=== PATIENT | female | born 1980 | race Caucasian/White ===

== ENCOUNTER 2023-01-07 17:29 | Observation (INO) ==
[2023-01-07] MEDS ORDERED: ONDANSETRON INJ 2 MG/ML 2 ML VIAL IV STA (17:44)
[2023-01-07] MEDS ORDERED: MoRPHine SULFATE 10 MG/ML CARP/VIAL IV STA (17:44)
[2023-01-07] MEDS ORDERED: PROPOFOL IV EMULSION 10 MG/ML 20 ML VIAL IV ONE (18:11)
--- NOTE | 2023-01-07 18:13 | XRay Report ---
XR ankle RT min 3V routine HISTORY: 42 years-old Female right ankle injury acute right ankle pain status post trauma COMPARISON: None TECHNIQUE: 2 views of the right ankle FINDINGS: Acute trimalleolar ankle fracture. Oblique distal fibular fracture demonstrates mild apex medial angu lation with a few millimeters of posterior and medial displacement. Acute medial malleolar fracture i s noted with associated tibiotalar subluxation. Acute mildly displaced posterior malleolar fracture. Spurring of the calcaneus. Moderate soft tissue swelling. IMPRESSION: Acute mildly displaced trimalleolar fracture with tibiotalar subluxation. ACT 112: Negative or not required by law. The above report was generated using voice recognition software. It may contain grammatical, syntax o r spelling errors. Electronically signed by: Ashok Eckert M.D. 01/07/2023 6:12 PM
--- NOTE | 2023-01-07 18:46 | XRay Report ---
XR ankle RT 2V HISTORY: 42 years-old Female r ankle fx acute right ankle fracture COMPARISON: Radiograph of same day at 5:45 PM TECHNIQUE: 3 views of the right ankle FINDINGS: Acute trimalleolar ankle fracture demonstrates improved alignment status post reduction. There is mil d persistent displacement of the fracture fragments with satisfactory alignment of the tibiotalar jenny nt. Mild osteoarthritis. IMPRESSION: Improved alignment of the acute trimalleolar fracture with satisfactory alignment of the tibiotalar joint. ACT 112: Negative or not required by law. The above report was generated using voice recognition software. It may contain grammatical, syntax o r spelling errors. Electronically signed by: Ashok Eckert M.D. 01/07/2023 6:43 PM
--- NOTE | 2023-01-07 19:11 | Emergency Department Note ---
ED Visit Note Patient was seen and evaluated by myself after discussion with Lorena ANN as she was concerned for tenting of the ankle with a trimalleolar fracture. X-rays were reviewed and did she just to try male with some subluxation per my read. After conversation with the patient at bedside. They were in agreement with sedation. Patient was given 70 mg of propofol in incremental doses by myself at bedside after discussing the risk and benefits. Patient tolerated the procedure well. Please see progress note for splinting and relocation of the ankle. Following the reduction pulses were checked by myself and showed a good DP pulse. Good cap refill. Repeat x-rays did show improved alignment of the tibial talar joint. .
--- NOTE | 2023-01-07 19:12 | Emergency Department Note ---
Pre Sedation Assessment Vital Signs Temp Pulse Pulse Resp BP BP Pulse Ox 01/07/23 18:36 117/91 01/07/23 18:36 90 13 01/07/23 18:30 89 9 L 01/07/23 18:30 121/85 01/07/23 18:27 88 6 L 01/07/23 18:27 119/89 01/07/23 18:20 97 H 12 100 01/07/23 18:20 134/82 01/07/23 18:16 96 H 13 100 01/07/23 18:16 123/84 01/07/23 18:15 93 H 18 100 01/07/23 18:22 92 H 01/07/23 18:35 01/07/23 18:33 01/07/23 18:28 01/07/23 18:23 01/07/23 18:17 91 H 14 123/84 100 01/07/23 17:29 36.6 C 105 H 16 140/93 98 O2 Del Method 01/07/23 18:36 01/07/23 18:36 01/07/23 18:30 01/07/23 18:30 01/07/23 18:27 01/07/23 18:27 01/07/23 18:20 01/07/23 18:20 01/07/23 18:16 01/07/23 18:16 01/07/23 18:15 01/07/23 18:22 01/07/23 18:35 Non-rebreather 01/07/23 18:33 Non-rebreather 01/07/23 18:28 Non-rebreather 01/07/23 18:23 Non-rebreather 01/07/23 18:17 Non-rebreather 01/07/23 17:29 Room Air Pre-Sedation Airway Assessment Smoking Status: Current every day smoker Hx Sleep Apnea: No Short, Thick Neck: No Thyromental Distance: > or= 3.5 Finger Breadths Oral Cavity: + WNL Mallampati Class: I ASA: ASA2 NPO Status Date of Last Intake of Fluids: 01/07/23 Time of Last Intake of Fluids: 13:00 Last Oral Intake of Fluids Comment: beer Date of Last Intake of Solid Food: 01/07/23 Time of Last Intake of Solid Foods: 13:00 Last Intake of Solids Comment: wings Notes The planned sedation has been discussed with the patient. Informed Consent was obtained. I have identified the patient, determined the appropriateness of sedation and have assessed the patient immediately prior to the procedure. All medicine(s) and interventions are by my order. Sedation was performed even though patient had recently eaten around 1 PM a full meal as there was concern for tenting of the skin with ankle dislocation and fracture.
--- NOTE | 2023-01-07 19:14 | Emergency Department Note ---
Post Sedation Assessment Vital Signs Temp Pulse Pulse Resp BP BP Pulse Ox 01/07/23 18:36 117/91 01/07/23 18:36 90 13 01/07/23 18:30 89 9 L 01/07/23 18:30 121/85 01/07/23 18:27 88 6 L 01/07/23 18:27 119/89 01/07/23 18:20 97 H 12 100 01/07/23 18:20 134/82 01/07/23 18:16 96 H 13 100 01/07/23 18:16 123/84 01/07/23 18:15 93 H 18 100 01/07/23 18:22 92 H 01/07/23 18:35 01/07/23 18:33 01/07/23 18:28 01/07/23 18:23 01/07/23 18:17 91 H 14 123/84 100 01/07/23 17:29 36.6 C 105 H 16 140/93 98 O2 Del Method 01/07/23 18:36 01/07/23 18:36 01/07/23 18:30 01/07/23 18:30 01/07/23 18:27 01/07/23 18:27 01/07/23 18:20 01/07/23 18:20 01/07/23 18:16 01/07/23 18:16 01/07/23 18:15 01/07/23 18:22 01/07/23 18:35 Non-rebreather 01/07/23 18:33 Non-rebreather 01/07/23 18:28 Non-rebreather 01/07/23 18:23 Non-rebreather 01/07/23 18:17 Non-rebreather 01/07/23 17:29 Room Air Recovery Score Activity: Moves 4 extremities Respiration: Deep Breath/Cough Circulation: +/-20% PreAnes Value Consciousness: Arouseable (by name) Oxygen Saturation: > 92% On Room Air Post Anesthesia Score: 9 Discharge Sedation Unexpected Event: None Post Sedation Plan On clinical assessment, the patient appears to have tolerated the sedation without complications. Patient is recovering as anticipated. Patient will continue to be monitored by nursing and may be discharged when sedation discharge criteria are met per below protocol. Upon Completions of procedure up to 15 minutes continue every 5 minute vital signs and the P.A.R. score; then discharge to a Phase I or Fast Track to Phase II per the following guidelines: * Discharge Patient to appropriate Phase II area if PAR is 8 or greater or return to pre- procedure baseline. The post - procedure orders will be as directed. * If PAR score is less than 8 or not return to pre-procedure baseline then patient will follow Phase I monitoring till PAR is reached for Phase II. The Phase I may be done in procedure room or may call to secure a Phase I area. * If naloxone or flumazenil are used for reversal, hold in Phase I for continued monitoring from when last reversal dose was given for a minimum of 60 minutes or longer pending the nurse and/or physician discretion of patient condition before discharge to Phase II. Please call the Sedation Physician to re-evaluate and complete post-note for discharge to Phase II area. Do NOT discharge from procedure sedation or Phase 1 until post- sedation evaluation note is complete by procedure /sedation MD Sedation Discharge Instructions to be given to the patient at discharge to home. Sedation Data Sedation Times Sedation Start Date: 01/07/23 Sedation Start Time: 18:24 Sedation End Date: 01/07/23 Procedure Times Procedure Start Time:: 18:23 Procedure End Time: 18:35 Specimens Specimens Obtained: No Supervising Physician Co-Signing Physician Notes EM PROCEDURE NOTE- PROCEDURAL SEDATION Sedation Level: Moderate PRIOR TO THE PROCEDURE THE FOLLOWING INFORMATION WAS VERIFIED: Procedure/Indication: Ankle fracture dislocation Verify Correct Patient: Yes Verify Correct Site: Yes Verify Correct Procedure: Yes Airway Assessment: Normal anatomy ASA Physical Status: 1 Procedure sedation was discussed with the patient. Risks and benefits were e xplained with the possible risks including but not limited to hypotension, allergic reaction, vomiting, pneumonia, loss of respiratory effort, cardiac arrest, and emergence reaction. PROCEDURE NOTE: Preparation for the sedation procedure included: nuclear radiologist, IV access, pulse oxymetry, ETCO2 monitor, oxygen, suction and ambu bag. Sedation was accomplished using propofol 70mg IV. I provided anesthesia care for this patient for 12 minutes. Voice Pathologist/Energy Attorney: Lars Mckeon DO. Complication(s) during the procedure: None Mental status post procedure: Response to verbal stimuli - Appropriate Disposition See nurses record for monitoring/vital signs Alert prior to discharge
--- NOTE | 2023-01-07 19:22 | XRay Report ---
XR ankle RT 2V HISTORY: 42 years-old Female postreduction in splint acute right ankle fracture COMPARISON: Radiographs of same day at 6:35 PM TECHNIQUE: 2 views the right ankle FINDINGS: Acute trimalleolar ankle fracture demonstrates unchanged alignment compared to the status post reduct ion images. There is mild persistent displacement of the fracture fragments with satisfactory alignme nt of the tibiotalar joint. Mild osteoarthritis. IMPRESSION: Unchanged alignment of the acute trimalleolar fracture status post reduction and casting. ACT 112: Negative or not required by law. The above report was generated using voice recognition software. It may contain grammatical, syntax o r spelling errors. Electronically signed by: Ashok Eckert M.D. 01/07/2023 7:20 PM
--- NOTE | 2023-01-07 19:24 | Emergency Department Note ---
ED Provider Note History of Present Illness Chief Complaint: Ankle Pain Stated Complaint: ANKLE INJURY Time Seen by Provider: 01/07/23 17:36 Source: patient Mode of arrival: ambulatory Limitations: no limitations This patient is a 42-year-old female who presents to the emergency department for evaluation of a right ankle injury. Patient is from the [facility] and is in town at her family's camp. She tripped on a step and fell, twisting her right ankle. Injury occurred about 1 hour prior to arrival. Patient has been unable to move the ankle or walk. Denies prior injuries to this ankle. She rates her discomfort a 10/10. She denies any other injuries. Home Medications Medication Instructions Recorded Confirmed Type No Known Home Medications 01/07/23 01/07/23 History Allergies Allergy/AdvReac Type Severity Reaction Status Date / Time No Known Allergies Allergy Unverified 01/07/23 18:59 Past Med/Surg History Medical History (Updated 01/07/23 @ 20:38 by Lorena Salas PA-C) No significant past medical history Social History Smoking Status: Current every day smoker Tobacco Type: Cigarettes Hx Substance Use: No Preferred Language: Swiss Feels Safe at Home: Yes Physical Exam Vital Signs Vital Signs - 24 hr 01/07/23 17:29 01/07/23 18:17 01/07/23 18:23 Temperature 36.6 C Temperature Source Temporal Artery Scan Pulse Rate 105 H Pulse Rate [Apical] 91 H Pulse Rate from SpO2 Sensor Respiratory Rate 16 14 Respiratory Effort / Characteristics Non-Labored Respiratory Depth Normal Blood Pressure 140/93 Blood Pressure [Left Arm] 123/84 Blood Pressure Mean 108 Blood Pressure Mean [Left Arm] 97 Pulse Oximetry 98 100 Oxygen Delivery Method Room Air Non-rebreather Non-rebreather Sepsis Recent Fever Within 48 Hours No Sepsis New/Unexplained Change in Mental Status No Sepsis Action Taken by Nursing No Action Required End-Tidal CO2 01/07/23 18:28 01/07/23 18:33 01/07/23 18:35 Temperature Temperature Source Pulse Rate Pulse Rate [Apical] Pulse Rate from SpO2 Sensor Respiratory Rate Respiratory Effort / Characteristics Respiratory Depth Blood Pressure Blood Pressure [Left Arm] Blood Pressure Mean Blood Pressure Mean [Left Arm] Pulse Oximetry Oxygen Delivery Method Non-rebreather Non-rebreather Non-rebreather Sepsis Recent Fever Within 48 Hours Sepsis New/Unexplained Change in Mental Status Sepsis Action Taken by Nursing End-Tidal CO2 01/07/23 18:22 01/07/23 18:15 01/07/23 18:16 Temperature Temperature Source Pulse Rate 92 H 93 H Pulse Rate [Apical] Pulse Rate from SpO2 Sensor 93 H Respiratory Rate 18 Respiratory Effort / Characteristics Respiratory Depth Blood Pressure 123/84 Blood Pressure [Left Arm] Blood Pressure Mean 97 Blood Pressure Mean [Left Arm] Pulse Oximetry 100 Oxygen Delivery Method Sepsis Recent Fever Within 48 Hours Sepsis New/Unexplained Change in Mental Status Sepsis Action Taken by Nursing End-Tidal CO2 01/07/23 18:16 01/07/23 18:20 01/07/23 18:20 Temperature Temperature Source Pulse Rate 96 H 97 H Pulse Rate [Apical] Pulse Rate from SpO2 Sensor 95 H 98 H Respiratory Rate 13 12 Respiratory Effort / Characteristics Respiratory Depth Blood Pressure 134/82 Blood Pressure [Left Arm] Blood Pressure Mean 99 Blood Pressure Mean [Left Arm] Pulse Oximetry 100 100 Oxygen Delivery Method Sepsis Recent Fever Within 48 Hours Sepsis New/Unexplained Change in Mental Status Sepsis Action Taken by Nursing End-Tidal CO2 29 28 01/07/23 18:27 01/07/23 18:27 01/07/23 18:30 Temperature Temperature Source Pulse Rate 88 Pulse Rate [Apical] Pulse Rate from SpO2 Sensor Respiratory Rate 6 L Respiratory Effort / Characteristics Respiratory Depth Blood Pressure 119/89 121/85 Blood Pressure [Left Arm] Blood Pressure Mean 99 97 Blood Pressure Mean [Left Arm] Pulse Oximetry Oxygen Delivery Method Sepsis Recent Fever Within 48 Hours Sepsis New/Unexplained Change in Mental Status Sepsis Action Taken by Nursing End-Tidal CO2 29 01/07/23 18:30 01/07/23 18:36 01/07/23 18:36 Temperature Temperature Source Pulse Rate 89 90 Pulse Rate [Apical] Pulse Rate from SpO2 Sensor Respiratory Rate 9 L 13 Respiratory Effort / Characteristics Respiratory Depth Blood Pressure 117/91 Blood Pressure [Left Arm] Blood Pressure Mean 99 Blood Pressure Mean [Left Arm] Pulse Oximetry Oxygen Delivery Method Sepsis Recent Fever Within 48 Hours Sepsis New/Unexplained Change in Mental Status Sepsis Action Taken by Nursing End-Tidal CO2 37 41 VITALS: Vitals are noted on the nurse's note and reviewed by myself. GENERAL: This is a 42-year-old female, appears to be in pain but in no significant distress. HEART: Regular rate and rhythm without murmurs gallops or rubs. LUNGS: Clear to auscultation bilaterally without wheezes, rales or rhonchi. MUSCULOSKELETAL: There is obvious deformity of the right ankle with tenting at the medial malleolus. Dorsalis pedis pulse difficult to find but was found with Doppler. Skin is slightly dusky. Patient unable to move at the ankle. NEURO: Patient was alert and oriented to person place and time. Procedures Orthopedic Fracture Reduction Right ankle: Time Out Performed: Yes Side: right Fracture Reduction Location: tibia and fibula Analgesia: procedural sedation Technique: direct manipulation Post Reduction X-rays Demonstrate: anatomical reduction Post-reduction neuro exam: intact Post-reduction vascular exam: intact Splint Applied: Yes Patient Tolerated Procedure: well and no complications Course Course Splint placement: Splint: Ortho-Glass posterior and stirrup Indication: Unstable right ankle fracture Ortho-Glass splint was applied by the ED cctv technician and myself. Neurovascular status reassessed by myself status post splint placement and was intact. Administered Medications Discontinued Medications Morphine Sulfate (Morphine Sulfate 10 Mg/Ml Carp/Vial) 6 mg IV NOW STA Stop: 01/07/23 17:45 Last Admin: 01/07/23 17:51 Dose: 6 mg Documented By: ROB Morphine Sulfate (Morphine Sulfate 4 Mg/Ml 1 Ml Carp\Vial) 4 mg IV NOW STA Stop: 01/07/23 19:32 Last Admin: 01/07/23 19:37 Dose: 4 mg Documented By: EFREM Ondansetron HCl (Ondansetron Inj 2 Mg/Ml 2 Ml Vial) 4 mg IV NOW STA Stop: 01/07/23 17:45 Last Admin: 01/07/23 17:51 Dose: 4 mg Documented By: ROB Propofol (Propofol Iv Emulsion 10 Mg/Ml 20 Ml Vial) Confirm Administered Dose 200 mg IV .STK-MED ONE Stop: 01/07/23 18:12 Last Admin: 01/07/23 18:24 Dose: 70 mg Documented By: BEB Co-signed By: ROB Medical Decision Making Differential Diagnosis Fracture, subluxation, dislocation, contusion, ligamentous injury, neurovascular, compartment syndrome, rhabdomyolysis, as well as other pathologies. Home Medications was personally reviewed by me Laboratory Data Attestation: I reviewed the patient's lab results. 01/07/23 19:30 01/07/23 19:30 Lab Results 01/07/23 01/07/23 01/07/23 Range/Units 19:07 19:30 19:30 WBC 15.43 H (4.8-10.8) K/ul RBC 5.10 (4.20-5.40) M/uL Hgb 15.2 (12.0-16.0) g/dl Hct 43.9 (37.0-47.0) % MCV 86.1 (80.0-100.0) fL MCH 29.8 (25.0-34.0) pg MCHC 34.6 (32.0-36.0) g/dL RDW Std Deviation 42.9 (36.4-46.3) fL RDW Coeff of Radha 13.6 (11.5-14.5) % Plt Count 281 (130-400) K/uL MPV 8.8 L (9.4-12.4) fL Immature Gran % (Auto) 0.3 % Neut % (Auto) 75.5 % Lymph % (Auto) 17.4 % Wagoner % (Auto) 6.4 % Eos % (Auto) 0.1 % Baso % (Auto) 0.3 % Neut # (Auto) 11.65 H (1.40-6.50) K/uL Lymph # (Auto) 2.69 (1.2-3.4) K/uL Wagoner # (Auto) 0.98 H (0.11-0.59) K/uL Eos # (Auto) 0.02 (0-0.50) K/uL Baso # (Auto) 0.04 (0-0.2) K/uL Immature Gran # (Auto) 0.05 (0.01-0.20) K/uL Sodium (136-145) mmol/L Potassium (3.5-5.1) mmol/L Chloride (98-107) mmol/L Carbon Dioxide (21-32) mmol/L Anion Gap (3-11) BUN (6-23) mg/dl Creatinine (0.6-1.2) mg/dl Est Cr Clr Drug Dosing ml/min Est GFR ( Amer) ml/min Est GFR (Non-Af Amer) ml/min BUN/Creatinine Ratio (10-20) Glucose (70-99(Fasting)) mg/dl Calcium (8.5-10.1) mg/dl Total Bilirubin (0.2-1.0) mg/dl AST (13-39) U/L ALT (7-52) U/L Alkaline Phosphatase (34-104) U/L Total Protein (6.0-8.3) gm/dl Albumin (3.4-5.0) gm/dl Globulin (2.5-4.0) gm/dl Albumin/Globulin Ratio (0.9-2) HCG, Qual Negative (Negative) SARS-CoV-2, RNA, NAAT NEGATIVE (NEGATIVE) 01/07/23 Range/Units 19:30 WBC (4.8-10.8) K/ul RBC (4.20-5.40) M/uL Hgb (12.0-16.0) g/dl Hct (37.0-47.0) % MCV (80.0-100.0) fL MCH (25.0-34.0) pg MCHC (32.0-36.0) g/dL RDW Std Deviation (36.4-46.3) fL RDW Coeff of Radha (11.5-14.5) % Plt Count (130-400) K/uL MPV (9.4-12.4) fL Immature Gran % (Auto) % Neut % (Auto) % Lymph % (Auto) % Wagoner % (Auto) % Eos % (Auto) % Baso % (Auto) % Neut # (Auto) (1.40-6.50) K/uL Lymph # (Auto) (1.2-3.4) K/uL Wagoner # (Auto) (0.11-0.59) K/uL Eos # (Auto) (0-0.50) K/uL Baso # (Auto) (0-0.2) K/uL Immature Gran # (Auto) (0.01-0.20) K/uL Sodium 139 (136-145) mmol/L Potassium 4.0 (3.5-5.1) mmol/L Chloride 108 H (98-107) mmol/L Carbon Dioxide 26 (21-32) mmol/L Anion Gap 5 (3-11) BUN 8 (6-23) mg/dl Creatinine 0.60 (0.6-1.2) mg/dl Est Cr Clr Drug Dosing 117.3 ml/min Est GFR ( Amer) 129.4 ml/min Est GFR (Non-Af Amer) 111.6 ml/min BUN/Creatinine Ratio 13.3 (10-20) Glucose 114 H (70-99(Fasting)) mg/dl Calcium 9.5 (8.5-10.1) mg/dl Total Bilirubin 0.3 (0.2-1.0) mg/dl AST 20 (13-39) U/L ALT 11 (7-52) U/L Alkaline Phosphatase 68 (34-104) U/L Total Protein 7.8 (6.0-8.3) gm/dl Albumin 5.0 (3.4-5.0) gm/dl Globulin 2.8 (2.5-4.0) gm/dl Albumin/Globulin Ratio 1.8 (0.9-2) HCG, Qual (Negative) SARS-CoV-2, RNA, NAAT (NEGATIVE) Imaging Data Attestation: I personally reviewed and interpreted this imaging study as fol lows: Radiologist's Impression: Ankle X-Ray 01/07/23 17:44 XR ankle RT min 3V routine HISTORY: 42 years-old Female right ankle injury acute right ankle pain status post trauma COMPARISON: None TECHNIQUE: 2 views of the right ankle FINDINGS: Acute trimalleolar ankle fracture. Oblique distal fibular fracture demonstrates mild apex medial angulation with a few millimeters of posterior and medial displacement. Acute medial malleolar fracture is noted with associated tibiotalar subluxation. Acute mildly displaced posterior malleolar fracture. Spurring of the calcaneus. Moderate soft tissue swelling. IMPRESSION: Acute mildly displaced trimalleolar fracture with tibiotalar subluxation. ACT 112: Negative or not required by law. The above report was generated using voice recognition software. It may contain grammatical, syntax or spelling errors. Electronically signed by: Ashok Eckert M.D. 01/07/2023 6:12 PM Ankle X-Ray 01/07/23 18:35 XR ankle RT 2V HISTORY: 42 years-old Female r ankle fx acute right ankle fracture COMPARISON: Radiograph of same day at 5:45 PM TECHNIQUE: 3 views of the right ankle FINDINGS: Acute trimalleolar ankle fracture demonstrates improved alignment status post reduction. There is mild persistent displacement of the fracture fragments with satisfactory alignment of the tibiotalar joint. Mild osteoarthritis. IMPRESSION: Improved alignment of the acute trimalleolar fracture with satisfactory alignment of the tibiotalar joint. ACT 112: Negative or not required by law. The above report was generated using voice recognition software. It may contain grammatical, syntax or spelling errors. Electronically signed by: Ashok Eckert M.D. 01/07/2023 6:43 PM Ankle X-Ray 01/07/23 18:55 XR ankle RT 2V HISTORY: 42 years-old Female postreduction in splint acute right ankle fracture COMPARISON: Radiographs of same day at 6:35 PM TECHNIQUE: 2 views the right ankle FINDINGS: Acute trimalleolar ankle fracture demonstrates unchanged alignment compared to the status post reduction images. There is mild persistent displacement of the fracture fragments with satisfactory alignment of the tibiotalar joint. Mild osteoarthritis. IMPRESSION: Unchanged alignment of the acute trimalleolar fracture status post reduction and casting. ACT 112: Negative or not required by law. The above report was generated using voice recognition software. It may contain grammatical, syntax or spelling errors. Electronically signed by: Ashok Eckert M.D. 01/07/2023 7:[address] 01/07/23 19:07 CT ankle RT wo con HISTORY: 42 years-old Female right trimalleolar fx acute trimalleolar right ankle fracture COMPARISON: Radiographs of same day TECHNIQUE: Multiple axial CT images of the right ankle were obtained without the use of IV contrast. Additional 3-D rendering images were generated from a separate workstation and symmetric for review. A dose lowering technique was used consistent with the principals of ALARA. FINDINGS: Acute trimalleolar fracture redemonstrated. The obliquely oriented minimally comminuted distal fibular fracture demonstrates lateral displacement measuring up to 6 mm. Acute and comminuted posterior malleolar fracture demonstrates posterior displacement of 5 mm. Acute and comminuted medial malleolar fracture demonstrates displacement measuring up to 5 mm. Several punctate intra-articular fracture fragments satisfactory alignment of the tibiotalar joint status post reduction and casting. Dorsal spurring of the talar neck. Spurring of the calcaneus. No additional acute fracture or dislocation identified. Ligaments and tendons are suboptimally dilated by CT technique. Soft tissue thickening is noted within the distribution of the ATFL. Moderate circumferential subcutaneous edema with small joint effusion. Minimal/fraying or tendon retraction identified. Lisfranc articulation appears maintained. IMPRESSION: 1. Acute comminuted trimalleolar fracture with mild displacement as above. 2. There are several punctate intra-articular fracture fragments. 3. Satisfactory alignment of the tibiotalar joint. ACT 112: Negative or not required by law. The above report was generated using voice recognition software. It may contain grammatical, syntax or spelling errors. Electronically signed by: Ashok Eckert M.D. 01/07/2023 8:09 PM MDM Narrative This patient is a 42-year-old female who presents to the emergency department for evaluation of an ankle injury. She was found to have a trimalleolar fracture with tibiotalar subluxation on x-ray. She had some skin tenting and duskiness of the skin and therefore required an urgent reduction of this. Jona evans had been initially treated with IV morphine and Zofran. She did require conscious sedation which was performed by Dr. Mckeon. Please see his note for this. Ankle was reduced as noted in the procedure section. Ortho-Glass splint was then applied by myself and the ED cctv technician. Orthopedics was consulted and agreed to admit the patient for surgery tomorrow. They did request a CT scan which was performed. Impression Closed fracture dislocation of ankle, Closed trimalleolar fracture Discharge Plan Visit Data Chief Complaint: Ankle Pain Stated Complaint: ANKLE INJURY ED Provider: Lars Mckeon ED Midlevel Provider: Lorena Salas Discharge Problem: Closed fracture dislocation of ankle, Closed trimalleolar fracture Patient Disposition: Admitted As Inpatient Forms Stand Alone Forms: [facility] [employer] Prescriptions Prescriptions: No Action No Known Home Medications Referrals Referrals: PCP,NO [Primary Care Provider] -
[2023-01-07] MEDS ORDERED: MoRPHine SULFATE 4 MG/ML 1 ML CARP\\VIAL IV STA (19:31)
[2023-01-07 19:55] LABS: Basophils # (auto) 0.04 K/uL (0-0.2); Basophils % (auto) 0.3 %; Eosinophils # (auto) 0.02 K/uL (0-0.50); Eosinophils % (auto) 0.1 %; Hematocrit (blood only) 43.9 % (37.0-47.0); Hemoglobin 15.2 g/dl (12.0-16.0); Immature Granulocytes # (auto) 0.05 K/uL (0.01-0.20); Immature Granulocytes % (auto) 0.3 %; Lymphocytes # (auto) 2.69 K/uL (1.2-3.4); Lymphocytes % (auto) 17.4 %; Mean Corpuscular Hemoglobin 29.8 pg (25.0-34.0); Mean Corpuscular Hgb Conc 34.6 g/dL (32.0-36.0); Mean Corpuscular Volume 86.1 fL (80.0-100.0); Mean Platelet Volume 8.8 fL (9.4-12.4); Monocytes # (auto) 0.98 K/uL (0.11-0.59); Monocytes % (auto) 6.4 %; Neutrophils # (auto) 11.65 K/uL (1.40-6.50); Neutrophils % (auto) 75.5 %; Platelet Count 281 K/uL (130-400); RDW Coefficient of Variation 13.6 % (11.5-14.5); RDW Standard Deviation 42.9 fL (36.4-46.3); White Blood Count 15.43 K/ul (4.8-10.8)
[2023-01-07 20:10] LABS: Albumin Globulin Ratio 1.8 (0.9-2); BUN Creatinine Ratio 13.3 (10-20); Bilirubin,Total 0.3 mg/dl (0.2-1.0); Calcium 9.5 mg/dl (8.5-10.1); Creatinine Clr Calc Pharmacy 117.3 ml/min; Est GFR (African American) 129.4 ml/min; Est GFR (Non-African American) 111.6 ml/min; Globulin 2.8 gm/dl (2.5-4.0); Total Protein 7.8 gm/dl (6.0-8.3)
--- NOTE | 2023-01-07 20:11 | CT Scan Report ---
CT ankle RT wo con HISTORY: 42 years-old Female right trimalleolar fx acute trimalleolar right ankle fracture COMPARISON: Radiographs of same day TECHNIQUE: Multiple axial CT images of the right ankle were obtained without the use of IV contrast. Additional 3-D rendering images were generated from a separate workstation and symmetric for review. A dose lowering technique was used consistent with the principals of ALARA. FINDINGS: Acute trimalleolar fracture redemonstrated. The obliquely oriented minimally comminuted distal fibula r fracture demonstrates lateral displacement measuring up to 6 mm. Acute and comminuted posterior mal leolar fracture demonstrates posterior displacement of 5 mm. Acute and comminuted medial malleolar fr acture demonstrates displacement measuring up to 5 mm. Several punctate intra-articular fracture frag ments satisfactory alignment of the tibiotalar joint status post reduction and casting. Dorsal spurri ng of the talar neck. Spurring of the calcaneus. No additional acute fracture or dislocation identifi ed. Ligaments and tendons are suboptimally dilated by CT technique. Soft tissue thickening is noted withi n the distribution of the ATFL. Moderate circumferential subcutaneous edema with small joint effusion . Minimal/fraying or tendon retraction identified. Lisfranc articulation appears maintained. IMPRESSION: 1. Acute comminuted trimalleolar fracture with mild displacement as above. 2. There are several punctate intra-articular fracture fragments. 3. Satisfactory alignment of the tibiotalar joint. ACT 112: Negative or not required by law. The above report was generated using voice recognition software. It may contain grammatical, syntax o r spelling errors. Electronically signed by: Ashok Eckert M.D. 01/07/2023 8:09 PM
[2023-01-07 20:18] LABS: Pregnancy Test, Serum Negative (Negative)
[2023-01-07] MEDS ORDERED: oxyCODONE/ACETAMINOPHEN 5mg/325mg TAB PO PRN (21:29)
[2023-01-07] MEDS ORDERED: ALUMINUM/MAGNESIUM SUSP 30 ML UDC PO PRN (21:29)
[2023-01-07] MEDS ORDERED: ONDANSETRON INJ 2 MG/ML 2 ML VIAL IV PRN (21:29)
[2023-01-07] MEDS ORDERED: diphenhydrAMINE 50 MG/ML VIAL IV PRN (21:29)
[2023-01-07] MEDS ORDERED: ACETAMINOPHEN 325 MG TAB PO PRN (21:29)
[2023-01-07] MEDS: SODIUM CHLORIDE 0.9% 1000ML 1,000 ML IV SCH (21:37)
[2023-01-07] MEDS: KETOROLAC 30 MG/ML VIAL IV PRN (22:46)
[2023-01-08] MEDS: KETOROLAC 30 MG/ML VIAL IV PRN ×2 (05:29→09:31)
[2023-01-08] MEDS ORDERED: ceFAZolin 2000MG 2,000 MG/15 ML SYR IV SCH (06:00)
[2023-01-08] MEDS ORDERED: SODIUM CHLORIDE 0.9% 1000ML 1,000 ML IV SCH (06:00)
--- NOTE | 2023-01-08 07:25 | Anesthesiology Consultation ---
Date of Service January 08, 2023 Assessment & Plan Chart Review Chart Review: entry level drafter initiated History Surgery Operation Date: 01/08/23 10:00 Proposed Procedures p Open Reduction Internal Fixation Ankle(Right) - Kennedy Parry MD Height/Weight Height: 5 ft 3 in Weight: 75 kg Allergies Allergy/AdvReac Type Severity Reaction Status Date / Time No Known Allergies Allergy Unverified 01/07/23 18:59 Medications Home Medications Medication Instructions Recorded Confirmed Last Taken No Known Home Medications 01/07/23 01/07/23 Unknown Active Medications Generic Name Dose Route Start Last Admin Trade Name Freq PRN Reason Stop Dose Admin Sodium Chloride 1,000 mls @ 80 mls/hr 01/07/23 21:29 01/07/23 21:37 Nss 1000ml IV 02/06/23 21:28 80 mls/hr .[id number] Administration Ketorolac Tromethamine 30 mg 01/07/23 21:29 01/08/23 05:29 Ketorolac 30 Mg/Ml Vial IV 01/12/23 21:28 30 mg Q6H PRN Administration Pain Oxycodone/Acetaminophen 1 - 2 tab 01/07/23 21:29 01/07/23 21:36 Oxycodone/Acetaminophen 5mg/325mg Tab PO 01/21/23 21:28 2 tab Q4H PRN Administration Pain NPO Date Last Intake of Fluids: 01/07/23 Time Last Intake of Fluids: 21:00 Date Last Intake of Solids: 01/07/23 Time Last Intake of Solids: 21:00 Past Medical History Medical History No significant past medical history Social History Smoking Status: Current every day smoker tobacco type: cigarettes Smoking cigarettes per day: 1/2 pack a day Do You Dip or Chew Tobacco: No Hx Alcohol Use: Yes Alcohol type: wine alcohol intake frequency: a few times a month Hx Substance Use: No substance use type: does not use Physical Exam Vital Signs Last Vital Signs Temp 98.1 F 01/07/23 21:25 Pulse 80 01/07/23 21:25 Resp 18 01/07/23 21:25 BP 117/79 01/07/23 21:25 Pulse Ox 98 01/07/23 21:25 O2 Del Method Room Air 01/07/23 21:25 Testing Laboratory Results 01/07/23 19:30 01/07/23 19:30 Electrocardiogram Date: 01/07/23 Findings: + NSR @ (80 bpm)
[2023-01-08] MEDS ORDERED: BUPIVACAINE/EPINEPHRINE 0.5% MPF 1:200,000 10 ML VIAL ONE (08:27)
--- NOTE | 2023-01-08 09:02 | History & Physical Report ---
Date of Service January 08, 2023 Assessment & Plan (1) Closed fracture dislocation of ankle: Plan: I reviewed the x-rays and CT scan, and explained the diagnosis with the patient. I discussed with patient and her that this is a severe injury, with impaction of the articular cartilage in the posterior ankle joint, and instability which places her at risk for arthritis and stiffness in this joint in the skilled nursing. Surgery is indicated to reduce and stabilize the fracture. I reviewed risks/benefits of surgery, alternatives and expected outcomes. She is at elevated risk for complications because she smokes. All questions were answered. Patient elects to proceed with surgery. Informed consent signed. Surgical site marked. She has been NPO since midnight last night and we will proceed to OR this morning. Will request nerve block by anesthesia. Patient could potentially discharge home this afternoon if pain controlled, tolerating oral diet, and able to independently move around maintaining NWB on the R leg. (2) Closed trimalleolar fracture: Admission and Anticipated Discharge Date Admission Date: January 07, 2023 History of Present Illness Primary Care Provider: NO PCP 42-year-old female who presented to the emergency department yesterday for evaluation of a right ankle injury. Patient is from the [facility] and is in town at her family's camp. She tripped on a step and fell, twisting her right ankle. Patient was unable to move the ankle or walk. Denies prior injuries to this ankle. Ankle X-rays in the ER revealed a trimalleolar right ankle fracture dislocation, posterior direction. She was given conscious sedation and the fracture was reduced and splinted. Orthopaedics was consulted and a CT scan was ordered. She was admitted to the hospital overnight for pain control, with the plan for possible surgical intervention today. This morning, patient reports her ankle is still painful, but the percocet is helping. Her toes feel numb to her. She has been elevating her leg overnight. Allergies Allergy/AdvReac Type Severity Reaction Status Date / Time No Known Allergies Allergy Unverified 01/07/23 18:59 Home Medications Medication Instructions Recorded Confirmed Type No Known Home Medications 01/07/23 01/07/23 History Past Med/Surg History Medical History No significant past medical history Smoker Surgical History (Updated 01/08/23 @ 08:53 by Kennedy Parry MD) H/O breast augmentation Social History Smoking Status: Current every day smoker Tobacco Type: Cigarettes Cigarettes Per Day: 1/2 pack a day; Do You Dip or Chew Tobacco: No; Tobacco Cessation Education Requested by Patient: No (patient declined) Hx Alcohol Use: Yes Alcohol type: wine Hx Substance Use: No Preferred Language: Czech Communication Ability: Effective 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 R ankle: Splint in position, not removed for patient comfort. Exposed toes are w/wp. SILT over the exposed toes. Minimally wiggles toes. Results & Data Results & Data ([facility]) Vital Signs (Past 12 Hours) Vital Signs Temp Pulse Pulse Resp BP BP Pulse Ox 01/08/23 07:48 01/08/23 07:26 36.9 C 81 18 109/71 94 01/07/23 21:25 01/07/23 21:25 36.7 C 80 18 117/79 98 01/07/23 21:25 36.7 C 80 18 117/79 98 01/07/23 21:07 77 16 107/65 97 Pulse Ox O2 Del Method O2 Del Method 01/08/23 07:48 Room Air 01/08/23 07:26 Room Air 01/07/23 21:25 98 Room Air 01/07/23 21:25 Room Air 01/07/23 21:25 Room Air 01/07/23 21:07 Room Air Diagnostic Findings Ankle X-Ray 01/07/23 17:44 XR ankle RT min 3V routine HISTORY: 42 years-old Female right ankle injury acute right ankle pain status post trauma COMPARISON: None TECHNIQUE: 2 views of the right ankle FINDINGS: Acute trimalleolar ankle fracture. Oblique distal fibular fracture demonstrates mild apex medial angulation with a few millimeters of posterior and medial displacement. Acute medial malleolar fracture is noted with associated tibiotalar subluxation. Acute mildly displaced posterior malleolar fracture. Spurring of the calcaneus. Moderate soft tissue swelling. IMPRESSION: Acute mildly displaced trimalleolar fracture with tibiotalar subluxation. ACT 112: Negative or not required by law. The above report was generated using voice recognition software. It may contain grammatical, syntax or spelling errors. Electronically signed by: Ashok Eckert M.D. 01/07/2023 6:12 PM Ankle X-Ray 01/07/23 18:35 XR ankle RT 2V HISTORY: 42 years-old Female r ankle fx acute right ankle fracture COMPARISON: Radiograph of same day at 5:45 PM TECHNIQUE: 3 views of the right ankle FINDINGS: Acute trimalleolar ankle fracture demonstrates improved alignment status post reduction. There is mild persistent displacement of the fracture fragments with satisfactory alignment of the tibiotalar joint. Mild osteoarthritis. IMPRESSION: Improved alignment of the acute trimalleolar fracture with satisfactory alignment of the tibiotalar joint. ACT 112: Negative or not required by law. The above report was generated using voice recognition software. It may contain grammatical, syntax or spelling errors. Electronically signed by: Ashok Eckert M.D. 01/07/2023 6:43 PM Ankle X-Ray 01/07/23 18:55 XR ankle RT 2V HISTORY: 42 years-old Female postreduction in splint acute right ankle fracture COMPARISON: Radiographs of same day at 6:35 PM TECHNIQUE: 2 views the right ankle FINDINGS: Acute trimalleolar ankle fracture demonstrates unchanged alignment compared to the status post reduction images. There is mild persistent displacement of the fracture fragments with satisfactory alignment of the tibiotalar joint. Mild osteoarthritis. IMPRESSION: Unchanged alignment of the acute trimalleolar fracture status post reduction and casting. ACT 112: Negative or not required by law. The above report was generated using voice recognition software. It may contain grammatical, syntax or spelling errors. Electronically signed by: Ashok Eckert M.D. 01/07/2023 7:[address] 01/07/23 19:07 CT ankle RT wo con HISTORY: 42 years-old Female right trimalleolar fx acute trimalleolar right ankle fracture COMPARISON: Radiographs of same day TECHNIQUE: Multiple axial CT images of the right ankle were obtained without the use of IV contrast. Additional 3-D rendering images were generated from a separate workstation and symmetric for review. A dose lowering technique was used consistent with the principals of BRANDON. FINDINGS: Acute trimalleolar fracture redemonstrated. The obliquely oriented minimally comminuted distal fibular fracture demonstrates lateral displacement measuring up to 6 mm. Acute and comminuted posterior malleolar fracture demonstrates posterior displacement of 5 mm. Acute and comminuted medial malleolar fracture demonstrates displacement measuring up to 5 mm. Several punctate intra-articular fracture fragments satisfactory alignment of the tibiotalar joint status post reduction and casting. Dorsal spurring of the talar neck. Spurring of the calcaneus. No additional acute fracture or dislocation identified. Ligaments and tendons are suboptimally dilated by CT technique. Soft tissue thickening is noted within the distribution of the ATFL. Moderate circumferential subcutaneous edema with small joint effusion. Minimal/fraying or tendon retraction identified. Lisfranc articulation appears maintained. IMPRESSION: 1. Acute comminuted trimalleolar fracture with mild displacement as above. 2. There are several punctate intra-articular fracture fragments. 3. Satisfactory alignment of the tibiotalar joint. ACT 112: Negative or not required by law. The above report was generated using voice recognition software. It may contain grammatical, syntax or spelling errors. Electronically signed by: Ashok Eckert M.D. 01/07/2023 8:09 PM Code Status & VTE Plan VTE Prophylaxis Plan VTE Prophylaxis will be ordered: Yes Reason for no VTE drug order: Treatment not indicated
[2023-01-08] MEDS ORDERED: ROPIVACAINE 0.5% 5 MG/ML 30 ML VIAL ONE (09:23)
[2023-01-08] MEDS ORDERED: LIDOCAINE 2% MPF LOCAL 5 ML VIAL INFIL ONE (09:27)
[2023-01-08] MEDS ORDERED: PROPOFOL IV EMULSION 10 MG/ML 20 ML VIAL IV ONE ×2 (09:27→13:08)
[2023-01-08] MEDS ORDERED: fentaNYL citrate PF 100 MCG/2 ML VIAL ONE ×2 (09:27→10:34)
[2023-01-08] MEDS ORDERED: MIDAZOLAM HCL 1 MG/ML 2ML VIAL ONE (09:27)
[2023-01-08] MEDS ORDERED: ceFAZolin 330 MG/ML 1 GM VIAL ONE (09:54)
[2023-01-08] MEDS ORDERED: ePHEDrine sulfate 50 MG/ML AMP IV PRN (10:01)
[2023-01-08] MEDS ORDERED: fentaNYL citrate PF 100 MCG/2 ML VIAL IV PRN (10:01)
[2023-01-08] MEDS ORDERED: ATROPINE SULFATE 0.1 MG/ML 10ML SYR IV PRN (10:01)
[2023-01-08] MEDS ORDERED: ONDANSETRON INJ 2 MG/ML 2 ML VIAL IV PRN ×2 (10:01→13:23)
--- NOTE | 2023-01-08 11:27 | Electrocardiogram Report ---
Test Reason : Blood Pressure : / mmHG Vent. Rate : 080 BPM Atrial Rate : 080 BPM P-R Int : 144 ms QRS Dur : 070 ms QT Int : 374 ms P-R-T Axes : 003 -02 003 degrees QTc Int : 431 ms Normal sinus rhythm Possible Left atrial enlargement Borderline ECG No previous ECGs available Confirmed by Romario Casarez ([id number]) on 01/08/2023 11:27:05 AM Referred By: REFERRED SELF Confirmed By:Romario Casarez
[2023-01-08] MEDS: SODIUM CHLORIDE 0.9% 1000ML 1,000 ML IV SCH (12:33)
--- NOTE | 2023-01-08 12:44 | Fluoroscopy Report ---
INTRAOPERATIVE RADIOGRAPHS CLINICAL HISTORY: Open reduction and internal fixation of right ankle fractures. Fluoro time: 61 seconds. Exposure: 1.7 mGy FINDINGS: 4 spot fluoroscopic views of the right ankle are correlated with radiographs dated 3. A cortical lag screw has been placed transfixing a fracture of the medial malleolus. An additional cortical lag screw transfixes the distal tibia in the AP plane. There is a buttress plate transfixin g a distal fibular fracture. Numerous cortical lag screws transfix the plate. Near-anatomic alignment has been restored at the ankle joint. Overlying soft tissue edema is noted. IMPRESSION: Intraoperative images from open reduction and internal fixation of right ankle fractures as above. Electronically signed by: Avery Christianson M.D. 01/08/2023 12:41 PM
[2023-01-08] MEDS ORDERED: DEXAMETHASONE SOD INJ 4 MG/ML VIAL ONE (12:53)
[2023-01-08] MEDS ORDERED: ONDANSETRON INJ 2 MG/ML 2 ML VIAL ONE (12:53)
[2023-01-08] MEDS ORDERED: oxyCODONE/ACETAMINOPHEN 5mg/325mg TAB PO PRN (13:23)
[2023-01-08] MEDS ORDERED: MoRPHine SULFATE 2 MG/ML CARP IV PRN (13:23)
[2023-01-08] MEDS ORDERED: ceFAZolin 2000MG 2,000 MG/15 ML SYR IV ONE (13:23)
[2023-01-08] MEDS ORDERED: MoRPHine SULFATE 4 MG/ML 1 ML CARP\\VIAL IV PRN (13:23)
--- NOTE | 2023-01-08 13:23 | Operative Report ---
Post Operative Report Pre & Post Diagnosis Operation Date: 01/08/23 10:00 Pre-Op Diagnosis: Right Ankle Fracture Post-Op Diagnosis: Right Ankle Fracture I identified the patient and participated in the time-out.: Yes Procedure Operation Date: 01/08/23 10:00 Actual Procedures p Open Reduction Internal Fixation Right Ankle(Right) - Kennedy Parry MD Surgeon Kennedy Parry MD Picker And Sorter Load And Unload Kaley Van PAKelsea Estimated Blood Loss 10 Findings Consistent with Post-Op Diagnosis Specimens none Description of Procedure I was present during the entire case assisting with positioning, prepping, draping, wound retraction, wound closure, dressing and splint application. No fellow present. Please see Dr. Parry procedure note for specifics of the case. I attest to the content of the Intraoperative Record and any orders documented therein. Any exceptions are noted below.
--- NOTE | 2023-01-08 13:39 | Operative Report ---
Post Operative Report Pre & Post Diagnosis Operation Date: 01/08/23 10:00 Pre-Op Diagnosis: Closed displaced, comminuted, intra-articular trimalleloar Right Ankle Fracture Post-Op Diagnosis: Closed displaced, comminuted, intra-articular trimalleloar Right Ankle Fracture with loose intra-articular fragments I identified the patient and participated in the time-out.: Yes Procedure Operation Date: 01/08/23 10:00 Actual Procedures p Open Reduction Internal Fixation Closed displaced, comminuted, intra-articular trimalleloar Right Ankle and loose body removal - Kennedy Parry MD Surgeon Kennedy Parry MD Channel Marketing Coordinator MARY Van PA-C. No resident or fellow was available to assist. Estimated Blood Loss 10 Findings Consistent with Post-Op Diagnosis Specimens None Anesthesia Type General Regional Complications none Disposition Disposition: Recovery Room Indications 42-year-old female, tripped and fell yesterday sustaining a closed, comminuted, displaced intra-articular trimalleolar right ankle fracture dislocation. She presented to the emergency room where the ankle was reduced under conscious sedation and splinted. She was admitted to the hospital for pain control and potential surgical intervention today. A CT scan was obtained for preoperative planning. I discussed the CT scan results with the patient and her . This shows extensive comminution of the articular surface posteriorly, and a severely unstable fracture pattern. Surgery was indicated to restore the stability of her ankle. She understood that because of the severe nature of this injury she is at risk for getting arthritis in this ankle joint as well as stiffness and other possible complications of surgery were discussed. After reviewing all the risks and benefits of surgery, alternatives, and expected outcomes, she elected to proceed. All questions were answered. Informed consent was signed. Description of Procedure Patient was identified in the preoperative holding area where her surgical site was marked. She was given a popliteal nerve block by anesthesia and brought back to the main operating room where she is placed on the operating room table and general anesthesia was administered. She was then carefully moved into the sloppy lateral position on the beanbag which was deflated. Axillary roll was placed. All bony prominences were padded. Perioperative antibiotics were administered. She was prepped and draped in the usual sterile fashion. Prior to incision a multidiscipline timeout was called. All in the room were in agreement. We began by injecting the proposed incision sites with a total of 10 cc of half percent Marcaine. The limb was then exsanguinated with an Esmarch bandage. Tourniquet was inflated 250 mmHg. A 12 cm long incision was then made starting at the distal fibula and extending proximally centered along the posterior border of the fibula. I dissected down through subcutaneous tissues. Small crossing venous branches were identified and coagulated. The superficial peroneal nerve was identified in the proximal aspect of the wound. This was protected throughout the case. The fascia was then incised and the peroneal's were reflected posteriorly to expose the posterolateral aspect of the fibula. The fracture site was identified. Fracture hematoma was removed and the fracture site was irrigated out. A pointed tenaculum clamp was then used to obtain an anatomic reduction of the fibula. An 8 hole one third tubular locking plate was then applied along the posterior lateral aspect of the fibula to act as a buttress plate. The plate was centered over the fracture site and secured with a single cortical screw proximal and distal to the fracture. C-arm fluoroscopy was used to assess the position of the plate and screw lengths which we are happy with as well as reduction which was anatomic and we were also happy with. I therefore placed 2 more cortical screws proximal to the fracture and 2 locking screws distal to the fracture giving us a total of 6 cortices of fixation above and below the fracture. I then elected to place a lag screw through the plate and across the fracture. This was also with a 3.5 mm cortical screw. Excellent fixation was obtained. At this point we turned our attention to the posterior malleolus fracture. A large pointed tenaculum clamp was used to reduce the posterior malleolus under fluoroscopic guidance. Once this was complete we templated for a front to back screw to fixate the posterior malleolus. This was done with lateral and AP fluoroscopic views. A 1 cm stab incision was then made over the anterior aspect of the ankle. Hemostat was used to bluntly dissect down onto the bone. A K wire was then placed using a soft tissue sleeve from front to back. Our measurement was obtained at 40 mm. This was the same length we had measured on the axial CT scan. I then overdrilled over the wire with a 2.7 mm cannulated drill. A 4.0 mm short threaded cancellous screw was then placed over the wire while retracting the soft tissues to protect them. Excellent fixation was obtained. At this point we turned our attention towards the medial malleolus fracture. A 5 cm slightly curved incision was made centered over the medial malleolus. I dissected through the subcutaneous tissues down to the periosteum. The fracture site was easily identified and opened up. The periosteum was reflected to expose the fracture edges. The posterior tibial tendon was identified and the wound was protected throughout the case. Bulb irrigation was used to lavage the joint. The joint was then inspected. On her preop CT scan we were able to visualize multiple small comminuted fragments in the posterior medial tibia. These were visualized through the medial malleolus fracture. Approximately 4 small bony fragments were removed using a pituitary rongeur. The joint was rear irrigated out and there were no more loose fragments visible. Next the medial malleolus fracture was reduced to the main tibial shaft fragment and held with a dental pick. A K wire was placed to hold the reduction. Fluoroscopy was brought in. A second K wire was placed across the fracture in the center center position. The medial malleolus fracture was too small to except more than 1 screw due to concerns for fragmenting the piece. We then measured for a 40 mm screw, drilled with a 2.7 mm cannulated drill, then placed a 40 mm long, long thread 4.0 mm cannulated screw over the wire. The fracture compressed nicely as the screw was placed. Excellent fixation was obtained. At this point fluoroscopy was brought back in and we checked our reductions which were anatomic. We were happy with the position of our hardware. I then performed a external rotation stress view which revealed no syndesmotic or clear space widening. A cotton test additionally was performed of the fibula which felt stable. These findings indicated that her syndesmosis was not disrupted so no syndesmotic fixation was indicated. The wounds were then irrigated out with copious amounts normal saline. The tourniquet was let down and meticulous hemostasis was ensured. The periosteum and fascia was closed overlying the distal aspect of the plate to approximately the level of the syndesmosis. 3-0 Vicryl suture was used in the deep dermis for all incisions in interrupted buried fashion. Stapler was used for the skin. Patient was then placed into a posterior new plaster slab splint with the ankle held at neutral. She was then carefully moved supine, extubated, and transferred to recovery room in stable condition. Postoperative course: Patient will be readmitted to the floor. She and her had expressed a desire to return to [place] this evening. Assuming that her pain is under good control and she is tolerating an oral diet and able to ambulate maintaining nonweightbearing on the right lower extremity she can discharge home today. She will need to follow-up with an orthopedic surgeon 2 weeks from now, either myself or someone locally in [place] for staple removal and removal of the splint as well as x-rays out of the splint. I recommend a full 6 weeks of nonweightbearing due to the unstable nature of her injury. However 2 weeks from now she can transition to a walking boot which could be removed to allow early range of motion exercises. Recommend aspirin for DVT prophylaxis. I attest to the content of the Intraoperative Record and any orders documented therein. Any exceptions are noted below.
--- NOTE | 2023-01-08 13:44 | Anesthesiology Progress Note ---
Date of Service January 08, 2023 Anesthesia Post Procedure Vital Signs Vital Signs: Temp Pulse Pulse Pulse Resp BP BP 01/08/23 13:30 79 15 01/08/23 13:20 97.5 F L 84 16 01/08/23 07:48 01/08/23 07:26 98.4 F 81 18 01/07/23 21:25 01/07/23 21:25 98.1 F 80 18 01/07/23 21:25 98.1 F 80 18 01/07/23 21:07 77 16 107/65 01/07/23 18:36 117/91 01/07/23 18:36 90 13 01/07/23 18:30 89 9 L 01/07/23 18:30 121/85 01/07/23 18:27 88 6 L 01/07/23 18:27 119/89 01/07/23 18:20 97 H 12 01/07/23 18:20 134/82 01/07/23 18:16 96 H 13 01/07/23 18:16 123/84 01/07/23 18:15 93 H 18 01/07/23 18:22 92 H 01/07/23 18:35 01/07/23 18:33 01/07/23 18:28 01/07/23 18:23 01/07/23 18:17 91 H 14 123/84 01/07/23 17:29 97.9 F 105 H 16 140/93 BP Pulse Ox Pulse Ox O2 Del Method O2 Del Method O2 Flow Rate 01/08/23 13:30 118/72 98 Oxymask 4 01/08/23 13:20 120/78 100 Oxymask 6 01/08/23 07:48 Room Air 01/08/23 07:26 109/71 94 Room Air 01/07/23 21:25 98 Room Air 01/07/23 21:25 117/79 98 Room Air 01/07/23 21:25 117/79 98 Room Air 01/07/23 21:07 97 Room Air 01/07/23 18:36 01/07/23 18:36 01/07/23 18:30 01/07/23 18:30 01/07/23 18:27 01/07/23 18:27 01/07/23 18:20 100 01/07/23 18:20 01/07/23 18:16 100 01/07/23 18:16 01/07/23 18:15 100 01/07/23 18:22 01/07/23 18:35 Non-rebreather 01/07/23 18:33 Non-rebreather 01/07/23 18:28 Non-rebreather 01/07/23 18:23 Non-rebreather 01/07/23 18:17 100 Non-rebreather 01/07/23 17:29 98 Room Air Pain Intensity Right Ankle: Pain Intensity: 0 Transfer of Care Handoff Completed per policy Notes Mental Status: alert / awake / arousable and participated in evaluation Patient Amnestic to Procedure: Yes Nausea / Vomiting: adequately controlled Pain: adequately controlled Airway Patency, RR, SpO2: stable & adequate BP & HR: stable & adequate Hydration State: stable & adequate Anesthetic Complications: no major complications apparent and Pt Satisfied with anesthetic care
[2023-01-09] MEDS ORDERED: ASPIRIN 81 MG ECTAB PO SCH (09:00)
--- NOTE | 2023-01-09 13:19 | Discharge Summary ---
Date of Service January 09, 2023 Admission HPI Per Admitting Provider 42-year-old female who presented to the emergency department yesterday for evaluation of a right ankle injury. Patient is from the [place] area and is in town at her [place]'s camp. She tripped on a step and fell, twisting her right ankle. Patient was unable to move the ankle or walk. Denies prior injuries to this ankle. Ankle X-rays in the ER revealed a trimalleolar right ankle fracture dislocation, posterior direction. She was given conscious sedation and the fracture was reduced and splinted. Orthopaedics was consulted and a CT scan was ordered. She was admitted to the hospital overnight for pain control, with the plan for possible surgical intervention today. This morning, patient reports her ankle is still painful, but the percocet is helping. Her toes feel numb to her. She has been elevating her leg overnight. Admission Exam Per Admitting Provider Resting comfortably in bed in NAD. R ankle: Splint in position, not removed for patient comfort. Exposed toes are w/wp. SILT over the exposed toes. Minimally wiggles toes. Principal Diagnosis Right ankle trimalleolar fracture Discharge Exam Successfully ORIF of Rt ankle fracture. Splint clean, dry and intact. NV intact. Discharge Data Allergies Allergy/AdvReac Type Severity Reaction Status Date / Time No Known Allergies Allergy Unverified 01/07/23 18:59 Procedures Performed Operation Date: 01/08/23 10:00 Actual Procedures p Open Reduction Internal Fixation Right Ankle(Right) - Kennedy Parry MD Ordered Studies 01/07/23 19:07 CT ankle RT wo con Stat 01/08/23 FL ankle RT min 3V RTN Routine 01/08/23 07:31 US - OR guided needle placemen Routine Hospital Course (1) Closed fracture dislocation of ankle: Patient had an uneventful overnight stay prior to surgery. She was discharged home with Pain meds and advised to use Aspirin 81 mg twice daily for 30 days post operatively. She can either f/u at our clinic or with an orthopedist near her home in [place], [place], for follow up and suture removal. She may be trasitioned to a boot at post op week 2 but should be nonweightbearing for 6 weeks. Order for knee scooter provieded. (2) Closed trimalleolar fracture: Total Time Total Time Spent Total Time Spent (In Minutes): 1+ hours Discharge Plan Discharge Items Patient Disposition: Home - Self-Care Reason For Visit: RT ANKLE FRACTURE Discharge Diagnosis: Right ankle trimalleolar fracture Activity: As commented below Lifting: None Bathing: Keep incision dry Bathing Comment: May shower tomorrow Sexual Activity: Wait until after follow-up appointment Exercise/Sports: Wait until after follow-up appointment Driving/Machine Use: No driving until cleared by biologics specialist Weightbearing: Right non-weightbearing Weightbearing Comment: with splint and crutches Non-emergency contact: Surgeon Call non-emergency contact if: you have any medication questions, your pain is not controlled, your temperature is above 101.5, your wound has increased drainage and your wound pain has increased Follow-up/Referrals: PCP,GENI [Primary Care Provider] - Diet: Regular Addtl Attending Provider Instructions: Post-operative Instructions Dear Patient and Family/Friends, Before you are discharged from the hospital, it is important to know what to expect when you get home after surgery. To that end, we have created this sheet of discharge instructions which covers many commonly asked questions. Make sure you go through this sheet in its entirety with your nurse before you are discharged. Please note that we will go over the specifics of your surgery and recovery when you return for your first post-operative visit. Sincerely, Dr. Parry Medications 1. Oxycodone 5 mg: take 1-2 tabs PO q 4-6 hrs as needed fo pain. This will be sent to your pharmacy. 2. Diclofenac Sodium 75 mg: take 1 tab twice daily for 30 days post operatively. This will be sent to your pharmacy. 3. Aspirin 81 mg: take 1 tab twice daily for 30 days post operatively for blood clot prevention. Please purchase. 4. Extra Strength Tylenol 500 mg: take 2 tabs PO every 6-8 hours as needed for pain relief. Please purchase. Pain Expect to be in a fair amount of pain after surgery. Remember, our goal is not to eliminate your pain, but to make it tolerable. It is a good idea to stay ahead of your pain by taking the medications you were prescribed once you get home. Typically, the pain starts improving 3-7 days after surgery. You should start weaning off the narcotic pain medication (oxycodone, hydrocodone, hydromorphone, morphine) as soon as your pain improves. Please call our office if your pain is not adequately controlled. Ice Ice your operative site at least 5 times a day for 15-30 minutes at a time. Make sure you have a thin cloth between the ice or cooling unit and your skin to prevent wisdom bite. This is especially important if you received a nerve block. Continue icing your operative site for the first 5-7 days after surgery, then as needed. Diet/Nausea/Vomiting Start by drinking clear liquids and eating crackers. If you can tolerate this, then you may resume your normal diet. If you feel nauseated or vomit, take Zofran/ondansetron (if prescribed). Please call our office if you have intractable nausea or vomiting, or, if after hours, you may go to the Emergency Room for help. Constipation Constipation is a common side effect of narcotic pain medication. If you have not had a bowel movement within 2 days after surgery, we recommend purchasing an over the counter laxative such as Milk of Magnesia, Dulcolax, or Miralax from a local pharmacy, and taking it as instructed. Call our clinic if any questions. Slings and Braces If you were placed in a sling or brace, it must be worn at all times, including sleep. You may remove your sling or brace for physical therapy, home exercises, and showering. The length of time you will be in your brace and range of motion restrictions depends on what surgery you had; these details will be reviewed at your first post-operative appointment. Nerve block The anesthesia team sometimes places a nerve block to help with post-operative pain control. This results in significant numbness and inability to move the extremity. The nerve block usually wears off in 8-12 hours, but sometimes can last up to 24 hours. Please call our office if you are still unable to move your extremity after 24 hours, unless you received a pain pump to take home. Nerve blocks typically wear off quickly, so start taking pain medication as soon as you start feeling soreness near your surgical site. Weight bearing and Range of Motion. Do not bear any weight through your operative extremity immediately after surgery. If you had upper extremity surgery, do not lift anything with that arm. If you are in a knee brace, keep it locked in place until your follow-up. We will discuss your weight bearing, range of motion, and lifting restrictions in detail at your first post-operative appointment. Continuous Passive Motion (CPM) Machine If you were prescribed a CPM machine, it will start after your first post- operative appointment, at which time we will give you instructions on the range of motion settings and duration of treatment Physical therapy You will be given a prescription for physical therapy or occupational therapy at your first post-operative appointment. Typically, patients start therapy within 1 week of surgery Wound care and showering We will inspect your wound at your first post-operative visit, and may do a dressing change at that time. Most patients will be in a water-proof dressing that is removed 14 days after surgery. It is normal to see some dried blood on the dressing. Do not remove your dressing, paper strips or sutures yourself unless you are given permission. Showering is allowed the day after surgery. Do not scrub or remove any dressings. The wound should not be submerged underwater (i.e. in a bathtub or pool) until 4 weeks after surgery AURORA stockings If you were given white stockings, these are to be worn at all times except to shower (on both legs) for the first 2 weeks after surgery. Driving You may not drive while taking narcotic pain medication or while in a cast, splint, sling or brace. You, the patient, need to make the final determination about when you are safe to drive, however, the earliest you may consider driving after surgery is below: Hand/Wrist/Elbow Surgery: 3 days Shoulder Surgery: 2 weeks Hip,/Knee/Ankle Surgery: 4 weeks Fracture repair: 6 weeks Return to Work Your return to work depends on what surgery was done and what type of work you do. Please bring any paperwork your employer needs completed to your first post-operative visit. Also, bring a description of your job duties, as this helps us to understand what risks you may face at work. Travel Avoid long distance travel (greater than 1 hour) in airplanes and cars for the first 6 weeks after surgery. If you must travel, you need to have a Doppler ultrasound done before you travel to rule out a blood clot in your legs. Follow-up You should have a follow-up appointment already scheduled 1-2 days after surgery. If not, please contact our office to make this appointment before you leave the hospital. When to call the office It is normal to have swelling and bruising in the limb that was operated on. T his will improve with time. It is also normal to have fevers for the first 2 days after surgery. Reasons you should call your doctor include: Uncontrolled pain; Nausea, vomiting, or constipation that does not improve with medication; Fevers over 101.5, chills, sweats; Drainage or bleeding from the wound; Foul odor; Spreading areas of redness; Any other concerns Pending Studies at Discharge: No Stand-Alone Forms: My [facility], Smoking Cessation Medications and DC Order Prescriptions: New oxycodone 5 mg tablet 5 mg PO Q4H PRN (Reason: pain) Qty: 28 0RF diclofenac sodium 75 mg tablet,delayed release (DR/EC) 75 mg PO BID 30 Days Qty: 60 1RF Discharge Orders: Discharge Order (Routine); Ordered 01/08/23 Ordered By: Rashad Van Admission Data Admit Date/Time: 01/07/23 19:25 Attending Provider: Kennedy Parry Admit Provider: Kennedy Parry Primary Care Provider: PCP,NO Other Interventions: Discharge Summary Assessment (RN) Last Done: 01/08/23 14:04
--- NOTE | 2023-02-16 13:04 | Operative Report ---
Post Operative Report Pre & Post Diagnosis Operation Date: 01/08/23 10:00 Pre-Op Diagnosis: Right Ankle Fracture Post-Op Diagnosis: Right Ankle Fracture I identified the patient and participated in the time-out.: Yes Procedure Operation Date: 01/08/23 10:00 Actual Procedures p Open Reduction Internal Fixation Right Ankle(Right) - Kennedy Parry MD Surgeon Kennedy Parry MD [employer] MARY Van PA-C. No resident or fellow was available to assist. Estimated Blood Loss 10 Findings Consistent with Post-Op Diagnosis Specimens none Description of Procedure I was present during the entire case assisting with positioning, prepping, draping, wound retraction, wound closure, dressing and splint application. No fellow present. Please see Dr. Parry procedure note for specifics of the case. I attest to the content of the Intraoperative Record and any orders documented therein. Any exceptions are noted below.
== END 2023-01-08 17:14 | disposition home or self-care (01) ==
LOC: 3W 17:29 → ED 17:29 → 3W 21:07